=== PATIENT | male | born 2000 | race Caucasian/White ===

== ENCOUNTER 2021-10-21 10:00 | Emergency (ER) | payer OTHER ==
[2021-10-21] MEDS ORDERED: RALT400T PO ×2 (11:09→11:42)
[2021-10-21] MEDS ORDERED: EMTR1TAB12 PO ×2 (11:09→11:42)
[2021-10-21 11:58] LABS: HIV ANTIBODY 1&2 RAPID NON-REACTIVE (Neg)
[2021-10-22 16:06] LABS: HBSAG SCREEN Negative (Negative); HEPATITIS C ANTIBODY <0.1 s/co ratio (0.0-0.9)
== END 2021-10-21 12:16 | disposition home or self-care (01) ==
LOC: ER 10:01
DX: S61.239A Puncture wound without foreign body of unspecified finger without damage to nail, initial encounter (principal); W46.0XXA Contact with hypodermic needle, initial encounter; Y93.89 Activity, other specified; Y92.89 Other specified places as the place of occurrence of the external cause; Y99.8 Other external cause status
CPT/HCPCS: 36415; 86703; 86706; 86803; 87340; 99283

== ENCOUNTER 2024-02-02 10:04 | Emergency (ER) | payer OTHER ==
[~2024-02-02] VITALS: Ht 172.7 cm; Wt 81.8 kg
[~2024-02-02 10:04] MED LIST: EMTR1TAB12 PO; RALT400T PO
[2024-02-02 10:05] VITALS: BP 120/76; PULSE 74; RESP 16; TEMP 98.5; O2SAT 98
== END 2024-02-02 10:26 | disposition home or self-care (01) ==
LOC: ER 10:05
DX: S16.1XXA Strain of muscle, fascia and tendon at neck level, initial encounter (principal); S33.9XXA Sprain of unspecified parts of lumbar spine and pelvis, initial encounter; Z79.899 Other long term (current) drug therapy; V89.2XXA Person injured in unspecified motor-vehicle accident, traffic, initial encounter; Y93.89 Activity, other specified; Y92.410 Unspecified street and highway as the place of occurrence of the external cause; Y99.8 Other external cause status
CPT/HCPCS: 99282